=== PATIENT | female | born 1980 ===

== ENCOUNTER 2021-08-09 12:21 | Outpatient (REF) | payer OTHER, SELFPAY ==
[2021-08-09 17:25] LABS: Calculated LDL 112 mg/dL (<100); Cholesterol 204 mg/dL (<200); HDL Cholesterol 76 mg/dL (40-60); TSH (W/Ref FT4) 1.87 uIU/mL (0.36-3.74); Triglyceride 80 mg/dL (<150)
== END 2021-08-09 12:22 | disposition home or self-care (01) ==
LOC: NCHCN 12:21
PROVIDERS: PCP Internal Medicine; Visit Provider Internal Medicine
DX: R61 Generalized hyperhidrosis (principal); Z13.220 Encounter for screening for lipoid disorders
CPT/HCPCS: 80061; 84443

== ENCOUNTER 2024-11-25 16:21 | Outpatient (REF) | payer OTHER, SELFPAY ==
--- NOTE | 2024-11-25 08:30 | PAPFT_PTH ---
PATIENT: Stefania Kate LOC: [facility] U#:[id number] AGE/SX: 44/F ROOM: RE11/25/[address]: Kalpana Del Rio : 1980 BED: DIS: 11/25/2024 SPEC #: [id number] RECD: 11/25/24 17:42 STATUS: PATRICIO REKarl #: [id number] RIN: 11/25/24 08:[address]: Kalpana Del Rio DEPT: [facility] Cytology RECD BY: Liane Del Cid ENTERED: 11/25/24 17:42 SP TYPE: PAPFT OTHR DR: Berto Fields Tissues: 1 - CX/ENDOCX FOR PAP SMEARS Procedures: PAP THIN PREP/[facility] Screening HPV DNA PROBE Comments: [id number] (HPV 16 & 18/45)
== END 2024-11-25 16:22 | disposition home or self-care (01) ==
LOC: NCHCN 16:21
PROVIDERS: PCP Internal Medicine; Visit Provider Internal Medicine
DX: Z12.4 Encounter for screening for malignant neoplasm of cervix (principal)
CPT/HCPCS: 88142; 87624